=== PATIENT | male | born 1930 | race Caucasian/White ===

== ENCOUNTER → 2016-05-10 | Outpatient (CLI) | payer MEDICARE ==
[~2016-05-10] MED LIST: CALCITRIOL0.5 MCG PO; FINASTERIDE5 MG PO; KEFLEX500 MG PO; LOPRESSOR 25 MG25 MG PO; NON-ASPIRIN EX500 M1 PO; PROCRIT20000 UNIT SQ; SODIUM BICARBO650 M1 PO; SYNTHROID150 MCG PO; SYNTHROID200 MCG PO; [UNRECOGNIZED DRUG - CODE] INJ
[2016-05-10 09:22] LABS: HEMOGLOBIN 7.3 gm/dl (14.0-17.5); RED BLOOD COUNT 2.39 M/UL (4.20-5.50); WHITE BLOOD COUNT 5.1 K/UL (4.5-11.0)
== END ==
LOC: OPSV 08:51
PROVIDERS: Internal Medicine Nephrology
DX: N18.4 Chronic kidney disease, stage 4 (severe) (principal); D63.1 Anemia in chronic kidney disease
CPT/HCPCS: 36415; 80048; 82728; 83540; 83550; 85027; 96372; J0885

== ENCOUNTER → 2016-05-24 | Outpatient (CLI) | payer MEDICARE ==
[~2016-05-24] VITALS: Ht 177.8 cm; Wt 97.1 kg
[2016-05-24 09:49] LABS: HEMOGLOBIN 7.3 gm/dl (14.0-17.5); RED BLOOD COUNT 2.39 M/UL (4.20-5.50); WHITE BLOOD COUNT 5.7 K/UL (4.5-11.0)
== END ==
LOC: OPSV 09:00
PROVIDERS: Internal Medicine Nephrology
DX: N18.4 Chronic kidney disease, stage 4 (severe) (principal); D63.1 Anemia in chronic kidney disease
CPT/HCPCS: 36415; 85027; 96372; J0885; Q4081

== ENCOUNTER → 2016-05-28 | Outpatient (CLI) | payer MEDICARE | LOC: KOH-I 13:40 | DX: N40.0 Benign prostatic hyperplasia without lower urinary tract symptoms (principal); N26.1 Atrophy of kidney (terminal) | CPT/HCPCS: 76775; 76856 ==

== ENCOUNTER → 2016-06-07 | Outpatient (CLI) | payer MEDICARE ==
[~2016-06-07] VITALS: Ht 177.8 cm; Wt 97.1 kg
[2016-06-07 09:31] LABS: RED BLOOD COUNT 2.29 M/UL (4.20-5.50); WHITE BLOOD COUNT 5.2 K/UL (4.5-11.0)
== END ==
LOC: OPSV 08:48
PROVIDERS: Internal Medicine Nephrology
DX: N18.4 Chronic kidney disease, stage 4 (severe) (principal); D63.1 Anemia in chronic kidney disease
CPT/HCPCS: 36415; 80048; 82728; 83540; 83550; 85027; 96372; J0885

== ENCOUNTER → 2016-06-21 | Outpatient (CLI) | payer MEDICARE ==
[~2016-06-21] VITALS: Ht 177.8 cm; Wt 97.1 kg
[2016-06-21 09:31] LABS: HEMOGLOBIN 7.2 gm/dl (14.0-17.5); RED BLOOD COUNT 2.34 M/UL (4.20-5.50); WHITE BLOOD COUNT 4.6 K/UL (4.5-11.0)
== END ==
LOC: OPSV 08:30
PROVIDERS: Internal Medicine Nephrology
DX: N18.4 Chronic kidney disease, stage 4 (severe) (principal); D63.1 Anemia in chronic kidney disease
CPT/HCPCS: 36415; 85027; 96372; J0885

== ENCOUNTER → 2016-07-05 | Outpatient (CLI) | payer MEDICARE ==
[~2016-07-05] VITALS: Ht 177.8 cm; Wt 97.1 kg
[2016-07-05 09:18] LABS: RED BLOOD COUNT 2.26 M/UL (4.20-5.50); WHITE BLOOD COUNT 5.4 K/UL (4.5-11.0)
== END ==
LOC: OPSV 08:50
PROVIDERS: Internal Medicine Nephrology
DX: N18.4 Chronic kidney disease, stage 4 (severe) (principal); D63.1 Anemia in chronic kidney disease
CPT/HCPCS: 36415; 80048; 82728; 83540; 83550; 85027; 96372; J0885; Q4081

== ENCOUNTER → 2016-07-06 | Outpatient (CLI) | payer MEDICARE ==
[2016-07-06 09:39] LABS: RED BLOOD COUNT 2.18 M/UL (4.20-5.50); WHITE BLOOD COUNT 4.8 K/UL (4.5-11.0)
[2016-07-06 09:44] LABS: HEMOGLOBIN 6.8 gm/dl (14.0-17.5)
== END ==
LOC: LAB 08:53
PROVIDERS: Internal Medicine Nephrology
DX: N18.4 Chronic kidney disease, stage 4 (severe) (principal); D63.1 Anemia in chronic kidney disease
CPT/HCPCS: 36415; 36430; 80048; 85027; 86850; 86900; 86901; 86920; J7050; P9016

== ENCOUNTER → 2016-07-19 | Outpatient (CLI) | payer MEDICARE ==
[2016-07-19 09:48] LABS: HEMOGLOBIN 7.9 gm/dl (14.0-17.5); RED BLOOD COUNT 2.55 M/UL (4.20-5.50); WHITE BLOOD COUNT 5.5 K/UL (4.5-11.0)
== END ==
LOC: OPSV 08:51
PROVIDERS: Internal Medicine Nephrology
DX: N18.4 Chronic kidney disease, stage 4 (severe) (principal); D63.1 Anemia in chronic kidney disease
CPT/HCPCS: 36415; 85027; 96372; J0885

== ENCOUNTER 2016-08-01 22:33 | Observation (INO) | payer MEDICARE ==
[~2016-08-01] VITALS: Ht 180.3 cm; Wt 93.9 kg
[~2016-08-01 22:33] MED LIST changes: -CALCITRIOL0.5 MCG PO; -FINASTERIDE5 MG PO; -KEFLEX500 MG PO; -NON-ASPIRIN EX500 M1 PO; -PROCRIT20000 UNIT SQ; -SYNTHROID150 MCG PO; -[UNRECOGNIZED DRUG - CODE] INJ
[2016-08-01 23:26] LABS: HEMOGLOBIN 7.1 gm/dl (14.0-17.5); RED BLOOD COUNT 2.33 M/UL (4.20-5.50); WHITE BLOOD COUNT 6.5 K/UL (4.5-11.0)
[2016-08-02] MEDS ORDERED: CALCITRIOL0.5 MCG PO (10:02)
[2016-08-02] MEDS ORDERED: NON-ASPIRIN EX500 M1 PO (10:03)
[2016-08-02] MEDS ORDERED: PROCRIT20000 UNIT SQ (10:04)
[2016-08-03 05:09] LABS: RED BLOOD COUNT 2.19 M/UL (4.20-5.50); WHITE BLOOD COUNT 6.1 K/UL (4.5-11.0)
[2016-08-03 05:35] LABS: HEMOGLOBIN 6.8 gm/dl (14.0-17.5)
[2016-08-03] MEDS ORDERED: KEFLEX500 MG PO (13:27)
== END 2016-08-03 19:15 | disposition home or self-care (01) ==
LOC: ER1 22:33 → ZEROF 08-02 00:30 → MED SURG 4 08-02 10:29
PROVIDERS: Emergency Medicine; Internal Medicine Infectious Disease; Internal Medicine Nephrology; ADMIT Internal Medicine
DX: L03.115 Cellulitis of right lower limb (principal); L03.116 Cellulitis of left lower limb; R60.0 Localized edema; N18.5 Chronic kidney disease, stage 5; D63.1 Anemia in chronic kidney disease; I87.8 Other specified disorders of veins; E87.2 Acidosis; E03.9 Hypothyroidism, unspecified; Z87.11 Personal history of peptic ulcer disease; Z82.49 Family history of ischemic heart disease and other diseases of the circulatory system; Z79.899 Other long term (current) drug therapy; Z90.49 Acquired absence of other specified parts of digestive tract; Z98.890 Other specified postprocedural states
CPT/HCPCS: 36415; 36430; 71010; 80048; 80053; 82728; 83540; 83550; 84100; 84443; 85025; 86850; 86900; 86901; 86920; 87040; 96365; 96366; 96372; 96374; 96375; 99285; G0378; J0696; J0885; J1650; J7030; J7040; J7050; P9016

== ENCOUNTER 2016-08-19 09:01 | Inpatient (IN) | payer MEDICARE ==
[~2016-08-19] VITALS: Ht 180.3 cm; Wt 98.9 kg
[~2016-08-19 09:01] MED LIST changes: +CALCITRIOL0.5 MCG PO; +KEFLEX500 MG PO; +NON-ASPIRIN EX500 M1 PO; +PROCRIT20000 UNIT SQ
[2016-08-19 09:54] LABS: HEMOGLOBIN 7.4 gm/dl (14.0-17.5); RED BLOOD COUNT 2.43 M/UL (4.20-5.50); WHITE BLOOD COUNT 10.2 K/UL (4.5-11.0)
[2016-08-19] MEDS ORDERED: FINASTERIDE5 MG PO (15:54)
[2016-08-19] MEDS ORDERED: SODIUM BICARBO650 M1 PO (16:31)
[2016-08-19] MEDS ORDERED: [UNRECOGNIZED DRUG - CODE] INJ (16:32)
[2016-08-20] MEDS ORDERED: SYNTHROID150 MCG PO (07:06)
--- NOTE | 2016-08-20 08:42 | NUR ---
0700 PT RESP EFFORT LABORED, RALES NOTED, OXYGEN APPLIED, PULSE OX 68%, PT USING ACCESSORY MUSCLES TO BREATH, NOTIFIED THAT PT HR WAS DECREASING AND OXYGEN LEVEL WAS LOW. PT WAS ACTIVLY DYING. 07 PT RESP STOPPED, HR 40'S CALLED FAMILY IN FOR PT TO BE AT BEDSIDE WITH FAMILY. STAYED IN ROOM WITH PT FOR COMFORT. 07 NOTIFIED MORE FAMILY MEMBERS FOR PT , REQUESTED MEDICAL RESEARCH ASSISTANT 0742 NO RESP, NO PULSE, VERIFIED WITH 2ND RN. CONTACTED PT MD AND THE WHEEL PRESS CLERK [id number] CONTACTED [facility], RULED OUT FOR DONATION BY KALIA ULRICH RELATED TO AGE [age] CURTESY TRAY TAKEN INTO ROOM FOR FAMILY WAITING FOR THE HOME TO ARRIVE
--- NOTE | 2016-08-20 08:59 | NUR ---
0845 NOTIFIED [facility] FOR PT FAMIY POST MORTEM CARE GIVEN
== END 2016-08-20 07:43 | disposition expired ==
LOC: ER1 09:01 → ZEROF 11:13 → PROG CARE 15:29
PROVIDERS: Physician Assistant; ADMIT Internal Medicine
DX: I21.4 Non-ST elevation (NSTEMI) myocardial infarction (principal); N18.6 End stage renal disease; J96.20 Acute and chronic respiratory failure, unspecified whether with hypoxia or hypercapnia; G92 Toxic encephalopathy; N17.9 Acute kidney failure, unspecified; E87.2 Acidosis; Z66 Do not resuscitate; Z51.5 Encounter for palliative care; E87.5 Hyperkalemia; I48.91 Unspecified atrial fibrillation; D63.8 Anemia in other chronic diseases classified elsewhere; I50.9 Heart failure, unspecified; E03.9 Hypothyroidism, unspecified; K27.9 Peptic ulcer, site unspecified, unspecified as acute or chronic, without hemorrhage or perforation; K21.9 Gastro-esophageal reflux disease without esophagitis; I87.8 Other specified disorders of veins; Z79.1 Long term (current) use of non-steroidal anti-inflammatories (NSAID); Z79.899 Other long term (current) drug therapy; Z90.49 Acquired absence of other specified parts of digestive tract; Z98.49 Cataract extraction status, unspecified eye; Z82.49 Family history of ischemic heart disease and other diseases of the circulatory system; Z80.9 Family history of malignant neoplasm, unspecified
CPT/HCPCS: 36415; 71010; 80053; 82550; 82553; 83874; 83880; 84484; 85025; 93005; 96374; 99285; J2270; Q0177